=== PATIENT | female | born 1995 | race Caucasian/White ===

== ENCOUNTER 2018-02-15 19:41 | Emergency (ER) | payer OTHER | END 2018-02-15 20:07 | disposition home or self-care (01) | LOC: E/R 19:41 | DX: L50.9 Urticaria, unspecified (principal) | CPT/HCPCS: 99283; Z7502 ==

== ENCOUNTER 2019-02-28 10:17 | Emergency (ER) | payer OTHER ==
[2019-02-28 11:24] LABS: URINE BLOOD (Dip) POC 1+ (NEGATIVE); URINE GLUCOSE (Dip) POC Negative (NEGATIVE); URINE KETONES (Dip) POC Negative (NEGATIVE); URINE LEUKOCYTE EST (Dip) POC Negative (NEGATIVE); URINE NITRITE (Dip) POC Positive (NEGATIVE); URINE TOTAL PROTEIN POC Negative (NEGATIVE)
[2019-02-28] MEDS: IBUPROFEN 200 MG TAB PO (11:26)
== END 2019-02-28 12:15 | disposition home or self-care (01) ==
LOC: FTE 10:17
DX: N39.0 Urinary tract infection, site not specified (principal)
CPT/HCPCS: 81003; 81025; 99282